=== PATIENT | male | born 1940 | race Caucasian/White ===

== ENCOUNTER 2024-10-12 08:12 | Day surgery (SDC) | payer MEDICARE, OTHER ==
[2024-10-12] MEDS ORDERED: Sodium Chloride 0.9% 10 ML Syringe FLUSH PRN (08:30)
[2024-10-12] MEDS: Lactated Ringers 1,000 ML IV SCH (08:50)
[2024-10-12] MEDS ORDERED: Propofol 200 MG/20 ML SDV ONE (09:08)
[2024-10-12] MEDS ORDERED: Midazolam 1 MG/ML 2 ML SDV ONE (09:08)
== END 2024-10-12 11:18 | disposition home or self-care (01) ==
LOC: KA.SDS 08:12
PROVIDERS: ATTEND Family Medicine
DX: Z12.11 Encounter for screening for malignant neoplasm of colon (principal); D12.0 Benign neoplasm of cecum; D12.6 Benign neoplasm of colon, unspecified; K57.30 Diverticulosis of large intestine without perforation or abscess without bleeding; Z85.038 Personal history of other malignant neoplasm of large intestine; I10 Essential (primary) hypertension; E78.2 Mixed hyperlipidemia; E21.0 Primary hyperparathyroidism; E66.9 Obesity, unspecified
CPT/HCPCS: 00811; 88305; 99100; J2250; J2704; J3490; J7120